=== PATIENT | female | born 1980 ===

== ENCOUNTER 2018-03-17 03:44 | Inpatient (IN) | payer MEDICAID ==
[2018-03-17] MEDS ORDERED: OLIVE OIL 118 ML BTL ONE (04:03)
[2018-03-17] MEDS ORDERED: LIDOCAINE 1% 300 MG/30 ML SDV ONE (04:03)
[2018-03-17] MEDS ORDERED: OXYTOCIN/RINGERS LACTATE 20 UNIT/1,000 ML BAG IV ONE (04:05)
[2018-03-17] MEDS ORDERED: IBUPROFEN 600 MG TAB PO PRN (04:07)
[2018-03-17] MEDS ORDERED: EPSOM SALT 454 GM TP PRN (04:07)
[2018-03-17] MEDS ORDERED: OXYTOCIN/RINGERS LACTATE 1,000 ML IV PRN (04:07)
[2018-03-17] MEDS ORDERED: TERBUTALINE SULFATE 1 MG/ML VIAL IV PRN (04:07)
[2018-03-17] MEDS ORDERED: LR 1,000 ML IV PRN (04:07)
[2018-03-17] MEDS ORDERED: LIDOCAINE 1% 300 MG/30 ML SDV SC PRN (04:07)
[2018-03-17] MEDS ORDERED: MISOPROSTOL 200 MCG TAB PR PRN (04:07)
[2018-03-17] MEDS ORDERED: OLIVE OIL 118 ML BTL MISC PRN (04:07)
[2018-03-17] MEDS ORDERED: LR 500 ML IV ONE (04:17)
[2018-03-17] MEDS ORDERED: ceFAZolin 2 GM/DEXTROSE 100 ML IV ONE (04:17)
[2018-03-17] MEDS ORDERED: CITRIC ACID/SODIUM CITRATE 30 ML UDCUP ONE (04:23)
[2018-03-17] MEDS ORDERED: morphINE PF 5 MG/10 ML INJ ONE (04:23)
[2018-03-17 04:27] LABS: PLATELET COUNT 238 10^3/uL (150-400)
[2018-03-17] MEDS ORDERED: BUPIVACAINE/DEXTROSE 7.5MG/ML 2 ML SPINAL AMP SP ONE (04:28)
[2018-03-17] MEDS ORDERED: OXYTOCIN 100 UNITS/10 ML VIAL ONE (04:29)
[2018-03-17] MEDS ORDERED: ONDANSETRON 4 MG/2 ML VIAL ONE (04:29)
[2018-03-17] MEDS ORDERED: LR 1,000 ML IV SCH (04:30)
--- NOTE | 2018-03-17 05:05 | PREANESOB ---
Obstetric Pre-Anesthesia Info - General Info Proposed Procedure: Repeat c/s - Info Status: Full Term FHR Pattern: Reassuring - Labor Status Cervical Dilation per last OB SVE: 10 Section History: Repeat Indications for Current Section: Elective/Repeat (emergent, active labor) Anesthesia Allergies/Adverse Reactions: Allergy/AdvReac Type Severity Reaction Status Date / Time No Known Allergies Allergy Unverified 03/17/18 04:07 Visit Medications: Generic Name Dose Route Start Last Admin Trade Name Freq PRN Reason Stop Dose Admin Lactated Ringer's 1,000 mls @ 0 mls/hr 03/17/18 04:07 Lr IV 03/18/18 04:06 PRN PRN SEE PROTOCOL CONDITIONS Protocol Per Protocol Oxytocin/Lactated Ringer's 1,000 mls @ 125 mls/hr 03/17/18 04:07 Pitocin 20 Units/Lr (Premix) IV PRN PRN Post bleeding Lactated Ringer's 1,000 mls @ 125 mls/hr 03/17/18 04:30 Lr IV 03/18/18 04:29 CONT AMRIK Ibuprofen 600 mg 03/17/18 04:07 Motrin PO ONCE PRN post , pain Lidocaine HCl 300 mg 03/17/18 04:07 Lidocaine Hcl 1% SC 09/13/18 04:06 ONCE PRN episiotomy Magnesium Sulfate 454 gm 03/17/18 04:07 Epsom Salt TP 09/13/18 04:06 Q1H PRN perineal discomfort Misoprostol 800 - 1,000 mcg 03/17/18 04:07 Cytotec MA ONCE PRN Vaginal Atony/Bleeding [place] Oil 118 ml 03/17/18 04:07 Sweet Oil MISC 09/13/18 04:06 ONCE PRN perineal massage Terbutaline Sulfate 0.25 mg 03/17/18 04:07 Brethine IV 09/13/18 04:06 ONCE PRN Tachysystole Discontinued Medications Generic Name Dose Route Start Last Admin Trade Name Freq PRN Reason Stop Dose Admin Bupivacaine HCl/Dextrose Confirm 03/17/18 04:28 Marcaine Spinal Administered 03/17/18 04:29 Dose 2 ml SP .STK-MED ONE Citric Acid/Sodium Citrate Confirm 03/17/18 04:23 Bicitra Administered 03/17/18 04:24 Dose 30 ml .ROUTE .STK-MED ONE Cefazolin Sodium/Dextrose 100 mls @ 200 mls/hr 03/17/18 04:17 Ancef IV 03/17/18 04:46 ONCALL ONE Protocol Lactated Ringer's 500 mls @ 0 mls/hr 03/17/18 04:17 Lr IV 03/17/18 04:18 ONCE ONE As Directed Lidocaine HCl Confirm 03/17/18 04:03 Lidocaine Hcl 1% Administered 03/17/18 04:04 Dose 300 mg .ROUTE .STK-MED ONE Morphine Sulfate Confirm 03/17/18 04:23 Morphine Pf 5 Mg/10 Ml Administered 03/17/18 04:24 Dose 5 mg .ROUTE .STK-MED ONE [place] Oil Confirm 03/17/18 04:03 Sweet Oil Administered 03/17/18 04:04 Dose 118 ml .ROUTE .STK-MED ONE Ondansetron HCl Confirm 03/17/18 04:29 Zofran Administered 03/17/18 04:30 Dose 4 mg .ROUTE .STK-MED ONE Oxytocin Confirm 03/17/18 04:29 Pitocin Administered 03/17/18 04:30 Dose 100 units .ROUTE .STK-MED ONE Oxytocin/Lactated Ringer's Confirm 03/17/18 04:05 Pitocin 20 Units/Lr (Premix) Administered 03/17/18 04:06 Dose 20 unit IV .STK-MED ONE - Anesthesia History Response to Local Anesthetics: Normal Anesthesia & Operative History: No Prior Problems Family Anesthesia History: Negative - Social History Substance Use/Abuse: Denies - Focused Exam Neck exam: FROM Mallampati Score: Class 1 Mouth exam: poor dentition Pulmonary: no respiratory distress Cardiovascular: regular rate and rhythym Labs: 03/17/18 04:05 - Plan Consent Signed and on Chart: Yes Patient/Guardian Understands and Agrees to Plan: Yes Urgent/Emergent Case: Luly cross completed preop but documented later for safe timely pt care
[2018-03-17] MEDS ORDERED: HYDROCODONE/APAP 5/325 TAB PO PRN (05:06)
[2018-03-17] MEDS ORDERED: fentaNYL 100 MCG/2 ML INJ IVP PRN (05:06)
[2018-03-17] MEDS ORDERED: OXYCODONE/APAP 5/325 TAB PO PRN ×2 (05:06→23:07)
[2018-03-17] MEDS ORDERED: NALOXONE HCL 0.4 MG/ML INJ IVP PRN ×2 (05:06)
[2018-03-17] MEDS ORDERED: HYDROmorphONE/DILAUDID 1 MG/ML INJ IVP PRN (05:06)
[2018-03-17] MEDS ORDERED: MEPERIDINE 25 MG/0.5 ML AMP IVP PRN (05:06)
[2018-03-17] MEDS ORDERED: ONDANSETRON 4 MG/2 ML VIAL IVP PRN ×2 (05:06)
--- NOTE | 2018-03-17 05:06 | POSTANESTH ---
Post Anesthetic Evaluation Cardiovascular Status: Normal, Stable, Similar to Pre-Op Cond Respiratory Status: Normal, Stable, Similar to Pre-op Cond. Level of Consciousness/Mental Status: Can Participate in Eval, Alert and Oriented Pain Control: Adequate, Prn Tx Ordered Nausea/Vomiting Control: Adequate, Prn Tx Ordered Complications Possibly Related to Anesthesia: None Noted
--- NOTE | 2018-03-17 05:46 | GHP ---
DATE OF ADMISSION: 03/17/2018 HISTORY UPON PRESENTATION: The patient is a 37-year-old para 1 white female at 38+ weeks gestation with an estimated due date of March 26 by the patient's report. The patient has had care down at [facility] and records have been requested. The patient reports spontaneous rupture of membranes this morning with clear fluid and intense contractions since midnight. The patient reports she was corey all last evening that were painful, but not frequent. The patient is having some bloody show upon admission and leakage of clear fluid. The patient reports good movement. The patient has a significant history of a previous and was planned to have a repeat C- section and tubal ligation on the . The patient reports that she was advised to have a repeat as this baby had been measuring bigger by ultrasound than her first and she reports pushing for many hours with her first and was unable to have a vaginal and there was also intolerance to pushing. Risks and benefits of repeat were reviewed with the patient as well as tubal ligation and the consent form was signed. The patient states that she signed appropriate Medicaid paperwork for a tubal ligation in January. The patient is adamant that no matter how close she is to a vaginal , that she wants to proceed with . The patient is miserable with contractions approximately every 2 minutes upon admission and is actively pushing. CARE: Patient reports that this has been textbook and there has been no complication. She denies anemia and has not needed any other medicine. She states that the ultrasound showed some difference with the cord and placenta that there was more membrane, possibly consistent with a velamentous insertion of the cord. She states the placenta was not low. The patient denies any problem with her blood type. Current labs not available yet. States GBS - PAST SURGICAL HISTORY: Negative other than . PAST OBSTETRIC HISTORY: section on March 25, 2015, a was performed after "hours of pushing and the baby's heart rate was not tolerating pushing". The patient denies problems with the . He was in perfect position to deliver. ALLERGIES: Patient has no known drug allergies. CURRENT MEDICATIONS: The patient takes vitamins only rarely because they make her nauseated. Denies being told to be on iron for anemia. Not taking Valtrex regularly PAST MEDICAL HISTORY: Patient denies any regular medical history. States she has no heart problems or lung problems. Denies asthma. Denies any intestinal problems with reflux or malabsorption. Carpal tunnel syndrome and the patient currently has on wrist guards. h/o HSV SOCIAL HISTORY: The patient has a supportive partner here with her and her 3- year-old son. The patient denies smoking. No alcohol use in the . Denies pot use PHYSICAL EXAMINATION: GENERAL: Upon admission, the patient is a well-developed , obese white female out of control with pain and pushing actively with contractions. The patient reports having a hard time focusing on questions because of the pain. VITAL SIGNS: BP normal. Have been limited due to acute uncontrolled behavior with the patient. abd palpably OP position of fetus. heart tones have been able to be monitored and have shown a category 2 tracing with occasional small variable decelerations but GBTBV and accels with quick recovery of variables. Contractions every 2 minutes. CERVICAL EXAM: Upon admission by the RN was 4 cm, but approximately 30 minutes later on my exam , the cervix was 9 cm dilated, head at 0 station. There is a tight pelvic outlet with a narrow anterior arch. EXTREMITIES: Nontender. Moderate edema. ASSESSMENT: Intrauterine in active rapid labor at 38+ weeks gestation with spontaneous rupture of membranes with clear fluid. Prior C- section and planned for repeat with tubal ligation. Consent forms have been resigned and records requested that sound like the Medicaid form has been signed. The patient is counseled that this labor has moved very quickly and possibly this baby would be able to fit vaginally and the patient is questioned if she wants to try to get an epidural and attempt a vaginal . She and her partner are adamant that the patient wanted to proceed with C- section and get her tubes tied no matter how close she is to vag . The patient will receive Ancef prior to this and will have on DVT prophylaxis during surgery. /[id number]/MODL MTDD
[2018-03-17] MEDS ORDERED: MAGNESIUM HYDROXIDE 30 ML UDCUP PO PRN (06:43)
[2018-03-17] MEDS ORDERED: LACTULOSE 20 GM/30 ML UDCUP PO PRN (06:43)
--- NOTE | 2018-03-17 06:47 | OBDEL ---
Info Type: Repeat Presentation at Delivery: Vertex (OP) L&D Analgesia/Anesthesia Type: Spinal (with duramorph) GBS+: No Intrapartum Medications: Generic Name Dose Route Start Last Admin Trade Name Deisy PRN Reason Stop Dose Admin Lactated Ringer's 1,000 mls @ 0 mls/hr 03/17/18 04:07 03/17/18 04:20 Lr IV 03/18/18 04:06 1,000 mls PRN PRN Administration SEE PROTOCOL CONDITIONS Protocol Per Protocol Discontinued Medications Generic Name Dose Route Start Last Admin Trade Name Deisy PRN Reason Stop Dose Admin Cefazolin Sodium/Dextrose 100 mls @ 200 mls/hr 03/17/18 04:17 03/17/18 04:25 Ancef IV 03/17/18 04:46 100 mls ONCALL ONE Administration Protocol Lactated Ringer's 500 mls @ 0 mls/hr 03/17/18 04:17 03/17/18 04:05 Lr IV 03/17/18 04:18 500 mls ONCE ONE Administration As Directed Indications for Delivery: Spontaneous Labor, SROM (PCS for RCS, BTL) Vaginal Delivery - Labor and Delivery Onset of Contractions Date: 03/17/18 Onset of Contractions Time: 00:00 Operative Report - Delivery Pre-op Diagnoses: IUP at 38+ wks, active labor, SROM, PCS - declines HAYDEN, undesired fertility Post-op Diagnoses: same, OP position History of Prior Section: Yes Number of Prior Sections: 1 Nulliparous Prior to Delivery: No Indications for Prior Section: Arrest of Descent, Non-reas. Status Indications for Current Section: Elective/Repeat (emergent, active labor) Procedure: Unscheduled, Low Transverse, Tubal Ligation Surgeon: Elizabeth Perkins Dispensary Technician: Chika Ruiz Anesthesiologist: Oswaldo Beatty Complications: Nucal Cord (x1 loose and reduced) Findings: nl uterus but wide band of dense scar anteriorly to rectus m. in midline. cauterized through to be able to identify bladder/ and separate viceral mucosa. inferior muscles firmly adherent in midline. tube sections removed, cauterized. 2- layer closure. mec noted upon amniotomy. OP position and long cord with NC x1. 1 min delayed cc. good tone of ut immediately Data TALHA: 03/26/18 Gestational Age: 38 week(s) and 5 day(s) [place] Delivery Date: 03/17/18 Delivery Time: 05:08 Sex of Infant: Female Score (1 Min): 8 Score (5 Min): 9 ICD10 Worksheet Patient Problems: Problems Problem Status Onset History of bilateral tubal ligation Acute S/P repeat low transverse Acute
[2018-03-17] MEDS ORDERED: KETOROLAC 30 MG/1 ML SDV ONE (07:50)
[2018-03-17] MEDS: KETOROLAC 30 MG/1 ML SDV IVP SCH ×3 (07:52→20:30)
[2018-03-17] MEDS: IBUPROFEN 600 MG TAB PO SCH ×3 (09:33→19:21)
[2018-03-17] MEDS: ACETAMINOPHEN 325 MG TAB PO SCH ×3 (13:40→19:21)
[2018-03-17] MEDS: SENNOSIDES/DOCUSATE SODIUM TAB PO SCH (14:01)
[2018-03-18] MEDS: KETOROLAC 30 MG/1 ML SDV IVP SCH (02:21)
[2018-03-18] MEDS: IBUPROFEN 600 MG TAB PO SCH ×4 (02:21→20:06)
[2018-03-18] MEDS: ACETAMINOPHEN 325 MG TAB PO SCH ×4 (04:00→20:07)
[2018-03-18] MEDS: SENNOSIDES/DOCUSATE SODIUM TAB PO SCH ×3 (08:04→20:07)
[2018-03-18] MEDS: oxyCODONE IR 5 MG TAB PO PRN ×3 (08:53→21:51)
--- NOTE | 2018-03-18 11:12 | OBPP ---
Progress Note Assessment/Plan: Assessment: s/p [facility] POD # 1 - pt is stable Plan: Continue routine post-op care Pt may want to go home later this evening Instructions reviewed with pt Rx given for Oxy IR Cont PNV and colace Pelvic rest RTC in 2 weeks fo incision check and again in 4 and 6 weeks for pp visit 03/18/18 11:09 Subjective/ Course: 03/18/18 11:10 Pt seen and examined. She is doing much better now, states she didn't get any pain meds last night until 0500 this am. Pain is controlled with po meds now. Pt is OOB, just had a shower, pratima regular diet, voiding and passing flatus. Denies any f/c/n/v/CP or SOB. Mod lochia. BF is going well so far. She may want to go home later this evening. Objective: 03/17/18 04:05 Patient ABO/Rh A POSITIVE 03/17/18 04:05 Temp Pulse Resp BP Pulse Ox 37.4 C 100 95 H 102/70 95 03/18/18 09:11 03/18/18 09:11 03/18/18 09:11 03/18/18 09:11 03/18/18 09:11 Uterine Position/Fundal Height: Umbilicus -1 Uterine Tone: Firm Physical Exam - Physical Exam General Appearance: WD/WN, alert, no apparent distress Respiratory: lungs clear, normal breath sounds Cardiac/Chest: regular rate, rhythm Abdomen: normal bowel sounds, non-tender, soft, flatus (+), incision (C/D/I, with steri strips) Extremities: non-tender, normal inspection Skin: normal color, warm/dry Neuro/Psych: alert, normal mood/affect, oriented x 3
--- NOTE | 2018-03-18 11:13 | OBGCSDC ---
General Delivery Information - General Info : 2 Para: 1 Abortions: 0 Type: Repeat L&D Analgesia/Anesthesia Type: Spinal Admission Date: 03/17/18 Labs: Patient ABO/Rh A POSITIVE 03/17/18 04:05 Hct 42.9 % (38.0-47.0) 03/17/18 04:05 - Hospital Course : 03/18/18 11:10 Pt seen and examined. She is doing much better now, states she didn't get any pain meds last night until 0500 this am. Pain is controlled with po meds now. Pt is OOB, just had a shower, pratima regular diet, voiding and passing flatus. Denies any f/c/n/v/CP or SOB. Mod lochia. BF is going well so far. She may want to go home later this evening. - Delivery Providers Surgeon: Elizabeth Pekrins [facility] Interface Developer: Chika Ruiz Anesthesiologist: Oswaldo Beatty - Delivery Number of Prior Sections: 1 Indications for Current Section: Elective/Repeat (emergent, active labor) Surgical Procedures: Unscheduled, Low Transverse, Tubal Ligation Intra-op Complications: Nucal Cord (x1 loose and reduced) Data TALHA: 03/26/18 Gestational Age: 38 week(s) and 6 day(s) [place] Delivery Date: 03/17/18 Delivery Time: 05:08 Sex of : Female [place] Weight (gm): 3618 kg Score (1 Min): 8 Score (5 Min): 9 Discharge Information - Discharge Information Condition: Good Instruction/Follow Up: Two Weeks (incision check), Four Weeks (mood check), Six Weeks (postoartum check)
--- NOTE | 2018-03-18 11:29 | SOAPPROG ---
SOAP Progress Note Assessment/Plan: Assessment: PPD #1-delivery 03/17/18 at 0500. Did very well overnight until 24 hour lanie. Needed pain meds at that point as the SAB MSO4 wore off. Stable without anes complications Plan: Stable and we will sign off. Please call if needed. 03/18/18 11:27 Subjective: feels great, needs pain meds now Objective: Vital Signs Temp Pulse Resp BP Pulse Ox 37.4 C 100 95 H 102/70 95 03/18/18 09:11 03/18/18 09:11 03/18/18 09:11 03/18/18 09:11 03/18/18 09:11 Laboratory Results 03/17/18 04:05 03/17/18 03/18/18 03/19/18 05:59 05:59 05:59 Intake Total 800 Output Total 2300 Balance -1500 site clean and dry ICD10 Worksheet Patient Problems: Problems Problem Status Onset History of bilateral tubal ligation Acute S/P repeat low transverse Acute
[2018-03-18] MEDS: POLYETHYLENE GLYCOL 3350 17 GM PKT PO PRN (14:12)
[2018-03-18] MEDS: SIMETHICONE 80 MG TAB CHEW PO SCH ×2 (14:12→23:18)
[2018-03-19] MEDS: ACETAMINOPHEN 325 MG TAB PO SCH ×5 (02:13→20:43)
[2018-03-19] MEDS: IBUPROFEN 600 MG TAB PO SCH ×5 (02:13→20:44)
[2018-03-19] MEDS: SIMETHICONE 80 MG TAB CHEW PO SCH ×2 (08:17→14:53)
[2018-03-19] MEDS: SENNOSIDES/DOCUSATE SODIUM TAB PO SCH (08:17)
[2018-03-19] MEDS: oxyCODONE IR 5 MG TAB PO PRN ×4 (08:30→20:52)
[2018-03-19] MEDS: POLYETHYLENE GLYCOL 3350 17 GM PKT PO PRN (08:30)
--- NOTE | 2018-03-19 10:46 | OBPP ---
Progress Note Assessment/Plan: Assessment: 37 y/o POD #2 s/p Rpt LTCS and BTL Plan: Bowel protocol today and I encouraged her to ambulate and shower. support, continue Oxy, Ibuprofen and Tylenol Prn. Likely d/c home tomorrow. 03/19/18 10:47 Subjective/ Course: 03/18/18 11:10 Pt seen and examined. She is doing much better now, states she didn't get any pain meds last night until 0500 this am. Pain is controlled with po meds now. Pt is OOB, just had a shower, pratima regular diet, voiding and passing flatus. Denies any f/c/n/v/CP or SOB. Mod lochia. BF is going well so far. She may want to go home later this evening. 03/19/18 10:35 Pt is doing well today. She feels like she needs to stay one more day to make sure her pain is well controlled, breast feeding is more established and that she can have a BM. She is nervous to drive back to [place] in the snow and is concerned about her ability to care for her toddler as well. She is ambulating and voiding without difficulty. Nursing is going well and her milk is starting to come in. Objective: 03/18/18 14:40 Patient ABO/Rh A POSITIVE 03/17/18 04:05 Temp Pulse Resp BP Pulse Ox 36.2 C 88 16 103/66 95 03/19/18 02:00 03/19/18 02:00 03/19/18 02:00 03/19/18 02:00 03/18/18 16:25 Uterine Position/Fundal Height: Umbilicus -2 Uterine Tone: Firm Physical Exam - Physical Exam General Appearance: alert, no apparent distress Neck: non-tender, full range of motion, supple Respiratory: chest non-tender, lungs clear, normal breath sounds Cardiac/Chest: regular rate, rhythm Abdomen: normal bowel sounds, incision (c/d/i) Extremities: swelling (no), Kay's sign (neg)
[2018-03-20] MEDS: SIMETHICONE 80 MG TAB CHEW PO SCH ×3 (02:11→08:44)
[2018-03-20] MEDS: SENNOSIDES/DOCUSATE SODIUM TAB PO SCH ×2 (02:11→08:42)
[2018-03-20] MEDS: ACETAMINOPHEN 325 MG TAB PO SCH ×2 (02:41→08:41)
[2018-03-20] MEDS: IBUPROFEN 600 MG TAB PO SCH ×2 (02:42→08:43)
[2018-03-20 08:39] VITALS: BP 120/78
[2018-03-20] MEDS: oxyCODONE IR 5 MG TAB PO PRN (08:43)
[2018-03-20] MEDS: BISACODYL 10 MG SUPP PR PRN ×2 (08:44→11:03)
--- NOTE | 2018-03-20 09:41 | OBPP ---
Progress Note Assessment/Plan: Assessment: 1) s/p RCS and BTL POD # 3 - pt is stable 2) Anemia - pt is asyptmoatic Plan: Plan for d/c home today Instructions reviewed with pt Rx given for Oxy IR Cont PNV, iron and colace Pelvic rest RTC in 2 weeks fo incision check and again in 4 and 6 weeks for pp visit 03/20/18 09:38 Subjective/ Course: 03/18/18 11:10 Pt seen and examined. She is doing much better now, states she didn't get any pain meds last night until 0500 this am. Pain is controlled with po meds now. Pt is OOB, just had a shower, pratima regular diet, voiding and passing flatus. Denies any f/c/n/v/CP or SOB. Mod lochia. BF is going well so far. She may want to go home later this evening. 03/19/18 10:35 Pt is doing well today. She feels like she needs to stay one more day to make sure her pain is well controlled, breast feeding is more established and that she can have a BM. She is nervous to drive back to [place] in the snow and is concerned about her ability to care for her toddler as well. She is ambulating and voiding without difficulty. Nursing is going well and her milk is starting to come in. Objective: 03/18/18 14:40 Patient ABO/Rh A POSITIVE 03/17/18 04:05 Temp Pulse Resp BP Pulse Ox 36.8 C 89 16 120/78 95 03/20/18 08:00 03/20/18 08:00 03/20/18 08:00 03/20/18 08:00 03/20/18 08:00 Uterine Position/Fundal Height: Umbilicus -2 Uterine Tone: Firm Physical Exam - Physical Exam General Appearance: WD/WN, alert, no apparent distress Respiratory: lungs clear, normal breath sounds Cardiac/Chest: regular rate, rhythm Abdomen: normal bowel sounds, non-tender, soft, flatus (+), incision (C/D/I with steri strips in place) Extremities: non-tender, normal inspection Skin: normal color, warm/dry Neuro/Psych: alert, normal mood/affect, oriented x 3
--- NOTE | 2018-03-20 09:43 | OBGCSDC ---
General Delivery Information - General Info : 2 Para: 1 Abortions: 0 Type: Repeat L&D Analgesia/Anesthesia Type: Spinal Admission Date: 03/17/18 Labs: Patient ABO/Rh A POSITIVE 03/17/18 04:05 Hct 35.8 % (38.0-47.0) L 03/18/18 14:40 - Hospital Course : 03/18/18 11:10 Pt seen and examined. She is doing much better now, states she didn't get any pain meds last night until 0500 this am. Pain is controlled with po meds now. Pt is OOB, just had a shower, pratima regular diet, voiding and passing flatus. Denies any f/c/n/v/CP or SOB. Mod lochia. BF is going well so far. She may want to go home later this evening. 03/19/18 10:35 Pt is doing well today. She feels like she needs to stay one more day to make sure her pain is well controlled, breast feeding is more established and that she can have a BM. She is nervous to drive back to [place] in the snow and is concerned about her ability to care for her toddler as well. She is ambulating and voiding without difficulty. Nursing is going well and her milk is starting to come in. - Delivery Providers Surgeon: Elizabeth Perkins Milieu Coordinator: Chika Ruiz Anesthesiologist: Oswaldo Beatty - Delivery Number of Prior Sections: 1 Indications for Current Section: Elective/Repeat (emergent, active labor) Surgical Procedures: Unscheduled, Low Transverse, Tubal Ligation Intra-op Complications: Nucal Cord (x1 loose and reduced) [place] Data TALHA: 03/26/18 Gestational Age: 39 week(s) and 1 day(s) [place] Delivery Date: 03/17/18 Delivery Time: 05:08 Sex of : Female [place] Weight (gm): 3618 kg Score (1 Min): 8 Score (5 Min): 9 Discharge Information - Discharge Information Prescriptions: oxyCODONE IR [Oxycodone Ir (*)] 5 - 10 mg PO Q4HRS PRN #30 tab PRN Reason: Pain, Severe Condition: Good Instruction/Follow Up: Two Weeks (incision check), Four Weeks (mood check), Six Weeks (postoartum check)
== END 2018-03-20 13:28 | disposition home or self-care (01) | DRG 540 ==
LOC: FLD 03:44 → OBSVTOIN 04:08 → FOB 08:35
PROVIDERS: ADMIT Obstetrics & Gynecology; ATTEND Obstetrics & Gynecology
PROC: 10D00Z1 Extraction of Products of Conception, Low, Open Approach (ICD-10-PCS; principal; 2018-03-17)
PROC: 0UB70ZZ Excision of Bilateral Fallopian Tubes, Open Approach (ICD-10-PCS; principal; 2018-03-17)
DX: O34.219 Maternal care for unspecified type scar from previous cesarean delivery (principal); O69.82X0 Labor and delivery complicated by other cord entanglement, without compression, not applicable or unspecified; Z37.0 Single live birth; Z3A.39 39 weeks gestation of pregnancy
CPT/HCPCS: J0690; J1885; J2274; J2405; J2590